=== PATIENT | female | born 1980 | race Two or more races ===

== ENCOUNTER 2021-02-05 21:14 | Emergency (ER) | payer MEDICAID ==
[~2021-02-05] VITALS: Ht 165.1 cm; Wt 90.7 kg
[2021-02-05 21:15] VITALS: BP 123/83
[2021-02-05] MEDS ORDERED: LORAZEPAM 1 MG TABLET PO ONE (22:30)
[2021-02-05] MEDS ORDERED: CHLO25CA10 PO (22:32)
[2021-02-05] MEDS ORDERED: LORAZEPAM 1 MG TABLET ONE (22:32)
== END 2021-02-05 22:55 | disposition home or self-care (01) ==
LOC: ER 21:19
DX: F10.139 Alcohol abuse with withdrawal, unspecified (principal); F32.9 Major depressive disorder, single episode, unspecified; F41.9 Anxiety disorder, unspecified; Y90.9 Presence of alcohol in blood, level not specified